=== PATIENT | female | born 1990 | race Asian ===

== ENCOUNTER 2017-03-19 17:19 | Emergency (ER) | payer OTHER ==
[~2017-03-19] VITALS: Ht 154.9 cm; Wt 45.8 kg
[2017-03-19 19:12] VITALS: BP 120/77
== END 2017-03-19 19:12 | disposition home or self-care (01) ==
LOC: ED 17:19
DX: H57.8 Other specified disorders of eye and adnexa (principal)
CPT/HCPCS: J7030; V2632